=== PATIENT | female | born 1970 | race Caucasian/White ===

== ENCOUNTER 2023-03-06 14:57 | Outpatient (OUT) | payer OTHER, SELFPAY ==
--- NOTE | 2023-03-06 | XR_ITS ---
[place] [id number] Patient Name: DILLON DAVIES MRN: [id number] date: 1970 Sex: F Assigned Patient Location: [facility] Current Patient Location: [facility] Accession/Order Number: [id number] Exam Date: 03/06/2023 15:08 Report Date: 03/08/2023 07:49 At the request of: DONNA CLARK Procedure: XR hip RT 2V w/ pelvis PROCEDURE: XR hip RT 2V w/ pelvis COMPARISON: None. HISTORY: RIGHT HIP PAIN, M25.551 FINDINGS: BONES:No acute fracture or dislocation. Mild right hip osteoarthropathy with joint space narrowing and sclerosis SOFT TISSUES:Negative. No visible soft tissue swelling. EFFUSION:None visible. OTHER: Negative. IMPRESSION: Mild osteoarthritis Electronically authenticated by: IQRA JOSEPH Date: 03/08/2023 07:49
== END 2023-03-06 14:58 | disposition home or self-care (01) ==
LOC: RAD 15:01
PROVIDERS: PCP Family Medicine; Visit Provider Family Medicine
DX: M16.11 Unilateral primary osteoarthritis, right hip (principal); M25.551 Pain in right hip
CPT/HCPCS: 73502

== ENCOUNTER 2024-11-14 09:33 | Outpatient (OUT) | payer BC, SELFPAY ==
--- NOTE | 2024-11-14 09:40 | XR_ITS ---
[facility] [place] [id number] Patient Name: DILLON DAVIES MRN: [id number] date: 1970 Sex: F Assigned Patient Location: [facility] Current Patient Location: [facility] Accession/Order Number: [id number] Exam Date: 11/14/2024 16:58 Report Date: 11/14/2024 16:59 At the request of: DONNA CLARK MD Procedure: XR cervical spine 5V CERVICAL SPINE 6 views: CLINICAL HISTORY: Cervical Radicular Pain COMPARISON: None FINDINGS: Vertebral body heights appear maintained. Mild spondylosis C6-7. No prevertebral soft tissue swelling. XR/XR cervical spine 5V IMPRESSION: MILD SPONDYLOSIS C6-7. Impression dictated by: Oniel Grant Jr., D.O.11/14/2024 4:59 PM Dictation Location: [place] [id number] Electronically authenticated by: [id number] Y Date: 11/14/2024 16:59
== END 2024-11-14 09:34 | disposition home or self-care (01) ==
LOC: RAD 09:36
PROVIDERS: PCP Family Medicine; Visit Provider Family Medicine
DX: M54.12 Radiculopathy, cervical region (principal); M47.812 Spondylosis without myelopathy or radiculopathy, cervical region
CPT/HCPCS: 72050